=== PATIENT | female | born 1955 | race Caucasian/White ===

== ENCOUNTER → 2017-08-23 | Outpatient (CLI) | payer MEDICARE ==
--- NOTE | 2017-08-23 16:06 | RAD ---
EXAM DESCRIPTION: Knee,Left Complete CLINICAL HISTORY: 62 years, Female, PAIN IN LEFT KNEE COMPARISON: None TECHNIQUE: Five views of the left knee FINDINGS: Metallic plate and screws are present. 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 The medial fragment is displaced medially. Distal femur still articulates with the proximal tibial fragment. The more distal fragment is proximally displaced overlapping with the distal femoral epiphysis. Rarefaction is seen around some screws on the lateral view. Lateral view shows normal position of the patella with large retropatellar effusion. Spurring of the distal femur is noted. Patellar sunrise view shows normal position of the patella relative to the anterior femoral trochlea. 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 Electronically signed by: Morgan Muñoz MD 08/23/2017 4:05 PM CDT
--- NOTE | 2017-08-23 16:41 | RAD ---
EXAM DESCRIPTION: Pelvis CLINICAL HISTORY: 62 years Female, PAIN IN LEFT HIP COMPARISON: None. TECHNIQUE: AP view of hips and pelvis. FINDINGS: Pelvic ring appears intact. No sacral fracture. Degenerative changes are prominent in the lower L-spine. No hip fracture or dislocation. IMPRESSION: Negative for fracture or dislocation. Electronically signed by: Morgan Muñoz MD 08/23/2017 4:39 PM CDT
== END ==
LOC: RAD 08:33
PROVIDERS: ATTEND Orthopaedic Surgery
DX: S82.102K Unspecified fracture of upper end of left tibia, subsequent encounter for closed fracture with nonunion (principal); M25.552 Pain in left hip